=== PATIENT | male | born 1990 | race African-American/Black ===

== ENCOUNTER 2024-07-14 18:59 | Outpatient (CLI) | payer OTHER, SELFPAY | END 2024-07-14 19:00 | disposition home or self-care (01) | LOC: LKVREF 19:02 | PROVIDERS: PCP Family Medicine; Visit Provider Family Medicine | DX: E11.9 Type 2 diabetes mellitus without complications (principal); R53.83 Other fatigue; Z13.29 Encounter for screening for other suspected endocrine disorder | CPT/HCPCS: 80048; 84443 ==